=== PATIENT | female | born 1980 | race American Indian/Alaskan Native ===

== ENCOUNTER 2019-07-12 18:49 | Emergency (ER) | payer SELFPAY ==
--- NOTE | 2019-07-12 19:15 | Event Note ---
ED Screening Note ED Screening Note: lower abdominal pain +white foul vaginal discharge x 1 week denies vaginal irritation or itching denies any urinary sx LNMP: two weeks ago no PMHx no allergies to meds This initial assessment/diagnostic orders/clinical plan/treatment(s) is/are subject to change based on patients health status, clinical progression and re- assessment by fellow clinical providers in the ED. Further treatment and workup at subsequent clinical providers discretion. Patient/guardian urged not to elope from the ED as their condition may be serious if not clinically assessed and managed. Initial orders include: UA, urine preg
[2019-07-12 19:18] VITALS: BP 117/78
[2019-07-12 21:34] LABS: Bilirubin,Urine NEG (Negative); Blood,Urine NEG (Negative); Color,Urine Yellow (Yellow); Mucus,Urine 2+ /HPF; Protein,Urine <15 mg/dL mg/dL (Negative)
[2019-07-12 21:39] LABS: HCG Qualitative,Urine Negative (Negative)
[2019-07-12 22:47] LABS: Basophils % (Auto) 0.6 % (0.0-1.8); Eosinophils # (Auto) 0.1 K/mm3 (0.0-0.4); Eosinophils % (Auto) 0.9 % (0.0-4.3); Hematocrit 37.1 % (30.3-42.9); Hemoglobin 12.3 gm/dl (10.1-14.3); Lymphocytes # (Auto) 2.1 K/mm3 (1.2-5.4); Lymphocytes % (Auto) 33.5 % (13.4-35.0); Mean Corpuscular HGB Conc 33 % (30-34); Mean Corpuscular Volume 97 fl (79-97); Monocytes # (Auto) 0.6 K/mm3 (0.0-0.8); Monocytes % (Auto) 9.6 % (0.0-7.3); Platelet Count 209 K/mm3 (140-440); Red Blood Count 3.82 M/mm3 (3.65-5.03); Red Cell Distribution Width 13.8 % (13.2-15.2)
[2019-07-12 23:09] LABS: BUN/Creatinine Ratio 9; Blood Urea Nitrogen 6 mg/dL (7-17); Calcium 8.9 mg/dL (8.4-10.2); Hemolysis Index 7
--- NOTE | 2019-07-13 00:53 | Ultrasound Report ---
Transabdominal US pelvis duplex doppler comp INDICATION / CLINICAL INFORMATION: Left pelvic pain. COMPARISON: None available. FINDINGS: The uterus is retroverted and measures 7.9 x 5.2 x 6.6 cm. The endometrial stripe measures 1.2 cm AP. No fibroids are identified. The right ovary measures 1.9 x 1.4 x 1.6 cm. The left ovary measures 3.5 x 2.5 x 2.2 cm and contains a 2 cm ovoid simple cyst. There is normal blood flow to both ovaries on Doppler exam. No free fluid i s seen. IMPRESSION: 2 cm follicular cyst in the left ovary. No evidence of ovarian torsion. Signer Name: Olaf Velasquez MD Signed: 07/13/2019 12:49 AM Workstation Name: [id number]
[2019-07-13] MEDS ORDERED: ZITHROMAX PO ONE (00:59)
[2019-07-13] MEDS ORDERED: XYLOCAINE 1% MPF 5 mL INFILTRATI ONE (00:59)
[2019-07-13] MEDS ORDERED: ROCEPHIN IM ONE (00:59)
--- NOTE | 2019-07-13 01:03 | Emergency Department Report ---
ED Female HPI - General Chief complaint: Abdominal Pain Stated complaint: ABD PAIN Time Seen by Provider: 07/12/19 19:14 Source: patient Mode of arrival: Ambulatory Limitations: No Limitations - History of Present Illness Initial comments: This is a 38-year-old female nontoxic, well nourished in appearance, no acute signs of distress presents to the ED with c/o of left pelvic pain and vaginal discharge abdominal 1 day. Patient denies any n/v. Patient also stated is concerned about STD and wants medical treatment. Patient denies any urinary sy mptoms. Patient denies chest pain, short of breath, fever, chills, headache, stiff neck, numbness or tingling. Patient denies any diarrhea or constipation. Patient denies any recent travels. Patient denies any allergies or significant past medical history. MD Complaint: vaginal discharge, pelvic pain -: days(s) (1) Severity: mild Severity scale (0 -10): 3 Quality: cramping Consistency: constant Improves with: none Worsens with: none Are you Now?: No Associated Symptoms: vaginal discharge. denies: vaginal bleeding, abdominal pain, nausea/vomiting, fever/chills, headaches, loss of appetite, dysuria, hematuria, rash, seizure, shortness of breath, syncope, weakness - Related Data Sexually active: Yes Previous Rx's Medication Instructions Recorded Last Taken Type metroNIDAZOLE [Flagyl] 500 mg PO Q12HR #14 tab 07/13/19 Unknown Rx Allergies Allergy/AdvReac Type Severity Reaction Status Date / Time No Known Allergies Allergy Unverified 07/12/19 18:52 ED Review of Systems ROS: Stated complaint: ABD PAIN Other details as noted in HPI Constitutional: denies: chills, fever Eyes: denies: eye pain, eye discharge, vision change ENT: denies: ear pain, throat pain Respiratory: denies: cough, shortness of breath, wheezing Cardiovascular: denies: chest pain, palpitations Endocrine: no symptoms reported Gastrointestinal: denies: abdominal pain, nausea, diarrhea Genitourinary: discharge. denies: urgency, dysuria Musculoskeletal: denies: back pain, joint swelling, arthralgia Skin: denies: rash, lesions Neurological: denies: headache, weakness, paresthesias Psychiatric: denies: anxiety, depression Hematological/Lymphatic: denies: easy bleeding, easy bruising ED Past Medical Hx - Past Medical History Previous Medical History?: No - Surgical History Past Surgical History?: No - Social History Smoking Status: Current Every Day Smoker Substance Use Type: None - Medications Home Medications: Home Medications Medication Instructions Recorded Confirmed Last Taken Type metroNIDAZOLE [Flagyl] 500 mg PO Q12HR #14 tab 07/13/19 Unknown Rx ED Physical Exam - General Limitations: No Limitations General appearance: alert, in no apparent distress - Head Head exam: Present: atraumatic, normocephalic - Neck Neck exam: Present: normal inspection, full ROM. Absent: tenderness, meningismus, lymphadenopathy - GI/Abdominal GI/Abdominal exam: Present: soft, normal bowel sounds. 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 Absent: cervical motion tendernes, adnexal tenderness, adnexal mass, uterine enlargement, uterine tenderness - Extremities Exam Extremities exam: Present: normal inspection, full ROM - Back Exam Back exam: Present: normal inspection, full ROM. Absent: tenderness, CVA tenderness (R), CVA tenderness (L), muscle spasm, paraspinal tenderness, vertebral tenderness, rash noted - Neurological Exam Neurological exam: Present: alert, oriented X3, normal gait - Psychiatric Psychiatric exam: Present: normal affect, normal mood - Skin Skin exam: Present: warm, dry, intact, normal color. Absent: rash ED Course Vital Signs 07/12/19 19:15 Temperature 99 F Pulse Rate 87 Respiratory 16 Rate Blood Pressure 117/78 O2 Sat by Pulse 99 Oximetry - Reevaluation(s) Reevaluation #1: 07/13/19 01:01 Patient is speaking in full sentences with no signs of distress noted. ED Medical Decision Making - Lab Data Result diagrams: 07/12/19 22:34 07/12/19 22:34 - Medical Decision Making This is a 29-year-old female that presents with bacterial vaginosis and Trichomonas, possible STD and left ovarian cyst. Patient is stable was examined by me. There is no abdominal tenderness. No pelvic pain. UA obtained. Wet prep obtained. Gonorrhea chlamydia swab pending. Patient was instructed to return in 3-5 days for GC results. Ultrasound Doppler of pelvic and transvaginal obtained and dictated by radiology as unremarkable. Patient is notified of the results with no questions noted by the patient. Patient wanted empirical treatment so patient received 250 mg Rocephin and 1 g of azithromycin by mouth. Patient was instructed to Follow-up with a primary care doctor in 3-5 days or if symptoms worsen and continue return to emergency room as soon as possible. At time of discharge, the patient does not seem toxic or ill in appearance. No acute signs of distress noted. Patient agrees to discharge treatment plan of care. No further questions noted by the patient. Critical care attestation.: If time is entered above; I have spent that time in minutes in the direct care of this critically ill patient, excluding procedure time. ED Disposition Clinical Impression: Bacterial vaginosis, Trichomonas vaginitis, Left ovarian cyst, Possible exposure to STD Disposition: DC-01 TO HOME OR SELFCARE Is pt being admited?: No Does the pt Need Aspirin: No Condition: Stable Instructions: Bacterial Vaginosis (ED), Metronidazole (By mouth), Safe Sex (ED) Additional Instructions: Follow-up with a primary care doctor in 3-5 days or if symptoms worsen and continue return to emergency room as soon as possible. Return in 3-5 days for gonorrhea and chlamydia results. Prescriptions: metroNIDAZOLE [Flagyl] 500 mg PO Q12HR #14 tab Referrals: CLARE SMITH MD [Primary Care Provider] - 3-5 Days Forms: Work/School Release Form(ED)
== END 2019-07-13 01:56 | disposition home or self-care (01) ==
LOC: ED 18:49
DX: A59.01 Trichomonal vulvovaginitis (principal); N83.202 Unspecified ovarian cyst, left side; F17.200 Nicotine dependence, unspecified, uncomplicated; Z79.899 Other long term (current) drug therapy
CPT/HCPCS: 36415; 80048; 81001; 81025; 85025; 87210; 87591; 93975; 96372; 99284; J0696

== ENCOUNTER 2021-11-11 00:54 | Emergency (ER) | payer SELFPAY ==
[2021-11-11 02:28] LABS: Bilirubin,Urine NEG (Negative); Blood,Urine NEG (Negative); Color,Urine Yellow (Yellow); Mucus,Urine 2+ /HPF; Protein,Urine <15 mg/dL mg/dL (Negative); RBC,Urine < 1.0 /HPF (0.0-6.0)
[2021-11-11] MEDS ORDERED: LIDOCAINE-MPF (1%) 10 MG/1 ML VIAL 5 ML INFILTRATI ONE (06:33)
--- NOTE | 2021-11-11 06:33 | Emergency Department Report ---
ED Female HPI - General Chief complaint: Urogenital-Female Stated complaint: SIDE PAIN/DISCHARGE Time Seen by Provider: 11/11/21 06:18 Source: patient Mode of arrival: Ambulatory Limitations: No Limitations - History of Present Illness Initial comments: Patient presents with vaginal discharge and odor. She believes that she has chlamydia. She has had chlamydia previously. Over the last week, she has had vaginal discharge with an odor. She states that the odor is so strong that she cannot be around other people and had to leave work. She has no known exposure to anything currently. Patient was not sure if she had some bacterial infection or something else. There is no trauma. She has no dysuria or frequency. She states that she is not having any flank pain or back pain. She has had no history of trauma. Patient has not been on antibiotics for an STI lately. - Related Data Previous Rx's Medication Instructions Recorded Last Taken Type Doxycycline Monohydrate 100 mg PO BID #20 capsule 11/11/21 Unknown Rx [Doxycycline Monohydrate CAP] metroNIDAZOLE [Flagyl TAB] 500 mg PO Q12HR #14 tab 11/11/21 Unknown Rx Allergies Allergy/AdvReac Type Severity Reaction Status Date / Time No Known Allergies Allergy Verified 11/11/21 01:57 ED Review of Systems ROS: Stated complaint: SIDE PAIN/DISCHARGE Other details as noted in HPI Comment: All other systems reviewed and negative Constitutional: denies: fever Eyes: denies: eye pain ENT: denies: throat pain Respiratory: denies: cough Cardiovascular: denies: chest pain Endocrine: denies: unexplained weight loss Gastrointestinal: as per HPI Genitourinary: as per HPI Musculoskeletal: denies: back pain Skin: denies: rash Neurological: denies: headache Hematological/Lymphatic: denies: as per HPI ED Past Medical Hx - Past Medical History Previous Medical History?: No - Surgical History Past Surgical History?: No - Social History Smoking Status: Current Every Day Smoker Substance Use Type: None - Medications Home Medications: Home Medications Medication Instructions Recorded Confirmed Last Taken Type Doxycycline Monohydrate 100 mg PO BID #20 capsule 11/11/21 Unknown Rx [Doxycycline Monohydrate CAP] metroNIDAZOLE [Flagyl TAB] 500 mg PO Q12HR #14 tab 11/11/21 Unknown Rx ED Physical Exam - General Limitations: No Limitations General appearance: alert, in no apparent distress - Head Head exam: Present: atraumatic, normocephalic - Eye Eye exam: Present: normal appearance, EOMI - ENT ENT exam: Present: normal orophraynx, normal external ear exam - Neck Neck exam: Absent: meningismus - Respiratory Respiratory exam: Present: normal lung sounds bilaterally. Absent: respiratory distress - Cardiovascular Cardiovascular Exam: Present: regular rate, normal rhythm - GI/Abdominal GI/Abdominal exam: Present: soft. Absent: distended, tenderness - Extremities Exam Extremities exam: Present: normal capillary refill - Back Exam Back exam: Absent: CVA tenderness (R), CVA tenderness (L) - Neurological Exam Neurological exam: Present: alert, oriented X3 - Psychiatric Psychiatric exam: Present: normal affect, normal mood - Skin Skin exam: Present: warm ED Course Vital Signs 11/11/21 11/11/21 11/11/21 01:48 01:51 07:15 Temperature 99.1 F Pulse Rate 76 70 Respiratory 17 15 Rate Blood Pressure 151/98 Blood Pressure 118/76 [Left] O2 Sat by Pulse 99 100 Oximetry - Reevaluation(s) Reevaluation #1: 11/11/21 07:28 patient was treated empirically for sexually transmitted infections and referred for outpatient follow-up. ED Medical Decision Making - Medical Decision Making Patient presents with vaginal discharge and odor. There is concern for chlamydia. She has had this before and states his symptoms are similar. I have treated her empirically for gonorrhea and chlamydia. We have also prescribed metronidazole for a bacterial vaginosis as she is also had this before. Patient states that she can follow-up with her calibration specialist. She was going to see her calibration specialist but they could not see her until December. Patient has no abdominal pain suggestive of PID. She has no abdominal pain or tenderness that would suggest or ectopic. She certainly does not appear to be toxic. Critical Care Time: No Critical care attestation.: If time is entered above; I have spent that time in minutes in the direct care of this critically ill patient, excluding procedure time. ED Disposition Clinical Impression: Vaginal discharge Disposition: HOME / SELF CARE / HOMELESS Is pt being admited?: No Condition: Stable Instructions: Vaginitis Additional Instructions: Take all the antibiotics. Avoid intercourse. Drink plenty water. Return for problems. Follow-up with your regular doctor for recheck. Avoid intercourse unt il your symptoms resolve. Prescriptions: Doxycycline Monohydrate [Doxycycline Monohydrate CAP] 100 mg PO BID #20 capsule metroNIDAZOLE [Flagyl TAB] 500 mg PO Q12HR #14 tab Referrals: PRIMARY CARE, [Referring] - 3-5 Days
[2021-11-11 07:16] VITALS: BP 118/76
== END 2021-11-11 07:32 | disposition home or self-care (01) ==
LOC: ED 00:54
DX: N89.8 Other specified noninflammatory disorders of vagina (principal); F17.200 Nicotine dependence, unspecified, uncomplicated
CPT/HCPCS: 81001; 96372; 99283; J0696; J3490